=== PATIENT | female | born 1965 | race Caucasian/White ===

== ENCOUNTER → 2017-03-12 | Outpatient (CLI) | payer BC, OTHER ==
[~2017-03-12] MED LIST: CETI10TA17 PO; CYCL5TAB PO; HYDR-3583 PO; IBUP1TAB90 PO
--- NOTE | 2017-03-12 21:31 | Diagnostic Imaging Report ---
Bilateral diagnostic mammogram with tomography. The current study was also evaluated with a Computer Aided Detection (CAD) system. INDICATION: Breast pain, lump. COMPARISON: December 07, 2013. FINDINGS: The breasts are composed of extremely dense parenchyma which may decrease mammographic sensitivity. There are bilateral circumscribed masses suggested, although the borders of these masses are partially obscured by the adjacent dense parenchyma. No suspicious cluster of calcifications. IMPRESSION: Extremely dense breast parenchyma with suggestion of bilateral breast masses favored to be cysts. Ultrasound evaluation pending. ACR BI-RADS Category 0: Incomplete. (Needs additional imaging evaluation). Result letter will be mailed to the patient. Note: At least 10% of breast cancer is not imaged by mammography. Dictated by: Dictated on workstation # [id number]
--- NOTE | 2017-03-12 21:55 | Diagnostic Imaging Report ---
EXAMINATION: Bilateral breast ultrasound. INDICATION: Bilateral breast pain and lump. FINDINGS: In the left breast, the palpable area is at 12:00 zone with a lesion seen 2 cm from the nipple. It is a predominantly cystic lesion in the left breast measuring 3.1 x 1.8 x 3.1 cm with thickened septations and internal debris. No definite solid nodule or solid component is seen. There are multiple other cysts scattered in the breast, the largest is at 11:00 zone, 6 cm from the nipple, measuring 3 cm. Multiple simple appearing cysts in the right breast are also seen, the largest are at the 12:00 zone measuring 3.6 cm and at 10:30 zone in the periphery of the breast measuring 3.1 cm. No solid mass is identified. IMPRESSION: Multiple bilateral breast cystic lesions, mostly simple in appearance. The palpable lesion, however, in the left breast at the 12:00 zone demonstrates thickened septations, likely a complicated cyst with no definite solid component. Six-month followup ultrasound for this lesion is recommended. ACR BI-RADS Category 3: Probably benign findings. Result letter will be mailed to the patient. Note: At least 10% of breast cancer is not imaged by mammography. Dictated on workstation # [id number]
== END ==
LOC: RAD 07:13
PROVIDERS: ATTEND Nurse Practitioner Family
DX: N63 Unspecified lump in breast (principal)
CPT/HCPCS: 77066

== ENCOUNTER 2017-05-11 06:58 | Day surgery (SDC) | payer OTHER ==
[~2017-05-11] VITALS: Ht 172.7 cm; Wt 65.8 kg
[~2017-05-11 06:58] MED LIST changes: +MULT1CAP27 PO
--- OUTSIDE RECORDS SUMMARY | 2017-05-11 07:05 | XMS REPORT | Continuity of Care Document ---
Author Author [facility] Organization [facility] Address Unknown Phone Unavailable Allergies Active Description Code Type Severity Reaction Onset Reported/Identified Relationship to Patient Clinical Status Yes No Known Drug Allergies [id number] Drug Allergy Unknown N/ A 10/11/2010 Medications Problems Date Dx Coded Attending Type Code Diagnosis Diagnosed By 04/22/2012 Ot 552.1 UMBILICAL HERNIA W OBSTR 03/11/2017 Ot 553.1 UMBILICAL HERNIA 03/11/2017 Ot V72.63 PRE-PROCEDURAL LABORATORY EXAMINATION 03/11/2017 Ot V74.8 SCREEN-BACTERIAL DIS NEC 03/11/2017 MIGUEL MENENDEZ FURNITURE STAINER Ot 610.0 SOLITARY CYST OF BREAST 03/11/2017 MIGUEL MENENDEZ FURNITURE STAINER Ot 611.72 LUMP OR MASS IN BREAST 03/11/2017 MIGUEL MENENDEZ FURNITURE STAINER Ot 610.0 SOLITARY CYST OF BREAST 03/11/2017 MIGUEL MENENDEZ FURNITURE STAINER Ot 611.72 LUMP OR MASS IN BREAST 03/12/2017 MIGUEL MENENDEZ FURNITURE STAINER Ot 610.0 SOLITARY CYST OF BREAST 03/12/2017 MIGUEL MENENDEZ FURNITURE STAINER Ot 611.72 LUMP OR MASS IN BREAST 03/18/2017 ANGELA MCKINNON APRN Ot N63 UNSPECIFIED LUMP IN BREAST 03/20/2017 ANGELA MCKINNON APRN Ot N63 UNSPECIFIED LUMP IN BREAST Procedures Results Encounters ACCT No. Visit Date/Time Discharge Status Pt. Type Provider Facility Loc./Unit Complaint [id number] 05/07/2017 05:32:00 2016 10:17:00 DIS Outpatient ENRIKE VALLADARES MD [facility] PREOP COLONOSCOPY [id number] 03/12/2017 07:13:00 2016 23:59:59 CLS Outpatient ANGELA MCKINNON APRN [facility] RAD BREAST LUMP,PAIN [id number] 02/26/2017 07:33:00 2016 23:59:59 CLS Preadmit ANGELA MCKINNON APRN [facility] RAD SCREENING [id number] 12/20/2013 09:42:00 2013 23:59:59 CLS Outpatient [id number] 12/07/2013 13:36:00 2013 23:59:59 CLS Outpatient MIGUEL MENENDEZ [facility] RAD RT BREAST MASS [id number] 05/11/2017 07:30:00 PEN Preadmit ENRIKE VALLADARES MD [facility] ENDO SCREENING [id number] 04/22/2012 05:30:00 Document Registration [id number] 04/19/2012 08:03:00 Document Registration
[2017-05-11] MEDS ORDERED: NS IV 500 ML 500 ML IV PRN (07:10)
[2017-05-11] MEDS ORDERED: NS IV 500 ML 500 ML ONE (07:12)
[2017-05-11 07:37] VITALS: BP 119/73
[2017-05-11] MEDS ORDERED: fentaNYL INJECTION 100 MCG/2 ML AMP ONE (08:07)
[2017-05-11] MEDS ORDERED: MIDAZOLAM 2 MG/2 ML (VERSED) VIAL ONE ×4 (08:07)
[2017-05-11] MEDS: MIDAZOLAM 2 MG/2 ML (VERSED) VIAL IVP PRN ×2 (08:20→08:23)
[2017-05-11] MEDS: fentaNYL INJECTION 100 MCG/2 ML AMP IVP PRN ×2 (08:21→08:25)
--- NOTE | 2017-05-11 08:27 | History & Physicial ---
History of Present Illness History of Present Illness Reason for visit/HPI Patient is seen today in no acute distress for a screening colonoscopy. Patient has a positive family history of colon cancer in her paternal grandmother ( diagnosed when she was 40). Patient has never had a colonoscopy before. The procedure was described in detail, along with potential complications. Patient reports she believes her bowel prep was adequate. Date of Admission Date Seen by Provider: May 11, 2017 Time Seen by Provider: 08:15 I consulted on this patient on 05/11/17 08:23 Attending Physician Richard Lowery MD Consult Allergies and Home Medications Allergies Coded Allergies: No Known Drug Allergies (Unverified , 10/11/10) Home Medications Cetirizine HCl 10 Mg Tablet, 10 MG PO DAILY, (Reported) Multivitamin 1 Each Capsule, 1 EACH PO DAILY, (Reported) Past Whifpxv-Mmqbyg-Tgiwwy Hx Patient Social History Marrital Status: Employed/Student: employed Alcohol Use: Regular Use Number of Drinks Today: AA Alcohol Beverage of Choice: Beer Recreational Drug Use: No Smoking Status: Former Smoker Type Used: Electronic/Vapor Recent Foreign Travel: No Contact w/other who traveled: No Recent Hopitalizations: No Recent Infectious Disease Expo: No Immunizations Up To Date Tetanus Booster (TDap): Unknown Seasonal Allergies Seasonal Allergies: Yes Respiratory Currently Using CPAP: No Currently Using BIPAP: No Reproductive System Hx Reproductive Disorders: No Sexually Transmitted Disease: No HIV/AIDS: No Female Reproductive Disorders: Denies HEENT Loss of Vision: Denies Hearing Impairment: Denies Constitutional: no symptoms reported EENTM: no symptoms reported Respiratory: no symptoms reported Cardiovascular: no symptoms reported Gastrointestinal: diarrhea Genitourinary: no symptoms reported Musculoskeletal: no symptoms reported Skin: no symptoms reported Psychiatric/Neurological: No Symptoms Reported Physical Exam Vital Signs Vital Sign - Last 12Hours 05/11/17 07:37 Temp 97.8 Pulse 62 Resp 18 B/P (MAP) 119/73 Pulse Ox 96 O2 Delivery Room Air Capillary Refill : General Appearance: No Apparent Distress, WD/WN HEENT: PERRL/EOMI Neck: Full Range of Motion Respiratory: Chest Non Tender, Lungs Clear, Normal Breath Sounds, No Accessory Muscle Use Cardiovascular: Regular Rate, Rhythm, No Edema, No Gallop, No JVD Gastrointestinal: Normal Bowel Sounds, No Organomegaly, No Pulsatile Mass, Non Tender Neurologic/Psychiatric: Alert, Oriented x3 Skin: Normal Color, Warm/Dry Assessment/Plan Assessment and Plan Screening colonoscopy today. Positive family history of CRC. Procedure described in detail. Patient in agreement to proceed. Problems: SUSAN DEAL MED STUDENT May 11, 2017 08:27
--- NOTE | 2017-05-11 08:43 | Conscious Sedation/ASA ---
Conscious Sedation Pre-Proced Time Reviewed: 08:11 ASA Class: 2 Airway Mallampati Classification: (apache appropriate class) I. II. III, IV Lungs Heart ASA score ASA 1: a normal healthy patient ASA 2: a patient with a mild systemic disease (mid diabetes, controlled hypertension, obesity ASA 3: a patient with a severe systemic disease that limits activity (angina , COPD, prior Myocardial infarction) ASA 4: a patient with an incapacitating disease that is a constant threat to life (CHF, renal failure) ASA 5: a moribund patient not expected to survive 24 hrs. (ruptured aneurysm) ASA 6: a declared brain patient whose organs are being harvested. For emergent operations, add the letter E after the classification Grade 1 Sedation Plan: Discussed options with patient/fam Note The patient is an appropriate candidate to undergo the planned procedure, sedation, and anesthesia. The patient immediately re-assessed prior to indication. ENRIKE VALLADARES MD May 11, 2017 8:43 am
--- NOTE | 2017-05-11 08:46 | Endo Procedure Record ---
Endo Procedure Report Date of Procedure May 11, 2017 Surgeon (s) ENRIKE VALLADARES MD Post Procedure/Op Diagnosis normal colonoscopy Procedure Performed colonoscopy to cecum Description of Procedure Anesthesia Type: Conscious Sedation Specimen(s) collected/removed none Description of the Procedure Indication for procedure: This lady came in for screening colonoscopy. She reported a positive family history of colon cancer in one of her grandparents. Informed consent was obtained after reviewing the procedure in detail. Description of the procedure: She was placed in left lateral decub disposition 100 vital signs were monitored. Conscious sedation was achieved using Versed and fentanyl. Digital rectal examination was unremarkable. The colonoscope was then introduced in the rectum and advanced all the way up to the cecum. The quality of bowel preparation was excellent. The scope was then withdrawn slowly and the mucosa examined in a systematic fashion. There was no abnormality. She tolerated the procedure well and was taken back to the nursing area in a stable condition. Impression: Normal screening colonoscopy. Positive family history. Recommend repeating in 5 years. Copies To: STAS RECIO MD Copies To: VAMSHI BRANTLEY MD, XAVIER M MD May 11, 2017 8:46 am
--- NOTE | 2017-05-11 08:47 | Discharge Inst-Simple/Standard ---
Discharge Inst-Standard Discharge Medications New, Converted or Re-Newed RX: Other Patient Instructions/Follow Up Plan of Care/Instructions/FU: repeat colonoscopy in 5 years Activity as Tolerated: Yes Discharge Diet: No Restrictions ENRIKE VALLADARES MD May 11, 2017 8:47 am
[2017-05-11 09:00] VITALS: BP 106/58
[2017-05-11 09:30] VITALS: BP 109/74
[2017-05-11 09:40] VITALS: BP 109/74
== END 2017-05-11 09:40 | disposition home or self-care (01) ==
LOC: ENDO 06:58
PROVIDERS: ATTEND Surgery
DX: Z12.11 Encounter for screening for malignant neoplasm of colon (principal); Z80.0 Family history of malignant neoplasm of digestive organs
CPT/HCPCS: 84703

== ENCOUNTER → 2017-09-21 | Outpatient (CLI) | payer OTHER ==
--- NOTE | 2017-09-21 19:55 | Diagnostic Imaging Report ---
INDICATION: Six-month follow-up of left breast cystic mass. Correlation is made with prior study from 03/12/2017. FINDINGS: Sonographic interrogation of the septated complex cystic mass at the 12 o'clock location of the left breast was performed. This appears to be 12 o'clock retroareolar. This cyst measures approximately 3.9 x 2.0 x 1.6 cm compared with 3.1 x 1.8 x 3.1 cm on prior. This continues to show some internal septations, but there has been a decrease in the amount of internal debris. No nodularity is present. There is good posterior acoustic enhancement. IMPRESSION: Septated cystic mass retroareolar 12 o'clock left breast. This has slightly increased in size in long axis but has decreased in the other two planes when compared with examination six months earlier. Continued follow-up is recommended with additional repeat left breast ultrasound in six months to confirm stability. ACR BI-RADS Category 3: Probably benign findings. Dictated by: Dictated on workstation # [id number]
== END ==
LOC: RAD 08:52
PROVIDERS: ATTEND Nurse Practitioner Family
DX: N60.02 Solitary cyst of left breast (principal)
CPT/HCPCS: 76642

== ENCOUNTER → 2018-04-29 | Outpatient (CLI) | payer OTHER ==
--- NOTE | 2018-04-29 19:17 | Diagnostic Imaging Report ---
INDICATION: Six-month followup of left breast mass. COMPARISON: Correlation is made with prior mammograms from 03/12/2017 and 12/07/2013. TECHNIQUE: 2D and 3D bilateral diagnostic mammography was performed with computer-aided detection (CAD) system. FINDINGS: Both breasts are heterogeneously dense, limiting the sensitivity of mammography. There are circumscribed rounded masses in both breasts consistent with cysts; however, most appear to be decreased in size when compared with prior mammogram from one year earlier. No new mass is seen. No malignant appearing microcalcifications are identified. The axillae are unremarkable. IMPRESSION: No mammographic features suspicious for malignancy are identified. Sonographic interrogation of the previously noted complicated cyst in the 12 o'clock location of the left breast is recommended and will be performed this morning. ACR BI-RADS Category 0: Incomplete. (Needs additional imaging evaluation). Result letter will be mailed to the patient. Note: At least 10% of breast cancer is not imaged by mammography. Dictated by: Dictated on workstation # [id number]
--- NOTE | 2018-04-29 19:25 | Diagnostic Imaging Report ---
INDICATION: Six-month follow-up left breast cystic mass. Correlation is made with prior left breast ultrasound from 09/21/2017. Sonographic interrogation of the 12 o'clock retroareolar location of the left breast was performed. The septated cystic mass at this location is very similar in size measuring 4.0 x 2.1 x 1.6 cm compared with 3.9 x 2.0 x 1.6 cm. No internal vascularity is seen. No new abnormality is detected. IMPRESSION: Stable septated cystic mass at 12 o'clock retroareolar left breast when compared with examination from 09/21/2017. Additional six-month sonographic follow-up is recommended to confirm stability. ACR BI-RADS Category 3: Probably benign findings. Dictated by: Dictated on workstation # [id number]
== END ==
LOC: RAD 07:58
PROVIDERS: ATTEND Nurse Practitioner Family
DX: N60.02 Solitary cyst of left breast (principal)
CPT/HCPCS: 76642; 77066

== ENCOUNTER 2018-05-28 09:45 | Outpatient (CLI) | payer OTHER ==
[~2018-05-28] VITALS: Ht 172.7 cm; Wt 65.8 kg
== END 2018-05-28 10:14 | disposition home or self-care (01) ==
LOC: PREOP 09:45
PROVIDERS: ATTEND Surgery
DX: Z01.818 Encounter for other preprocedural examination (principal)

== ENCOUNTER 2018-05-31 09:46 | Day surgery (SDC) | payer OTHER ==
[~2018-05-31] VITALS: Ht 172.7 cm; Wt 65.8 kg
[2018-05-31] MEDS ORDERED: MIDAZOLAM 2 MG/2 ML (VERSED) VIAL IVP ONE (10:00)
[2018-05-31] MEDS ORDERED: NS IV 500 ML 500 ML IV PRN (10:00)
[2018-05-31] MEDS ORDERED: fentaNYL INJECTION 100 MCG/2 ML AMP IVP ONE (10:00)
[2018-05-31] MEDS ORDERED: HURRICAINE EXT TUBE (BENZOCAINE) XX ONE (10:15)
--- NOTE | 2018-05-31 10:16 | History & Physicial ---
History of Present Illness History of Present Illness Reason for visit/HPI to undergo an upper endoscopy with possible balloon dilatation to address dysphagia Date of Admission 05/31/18 Date Seen by a Provider: May 31, 2018 Time Seen by a Provider: 10:15 I consulted on this patient on 05/31/18 10:15 Attending Physician Enrike Lowery MD Admitting Physician Vania Parra MD Consult Allergies and Home Medications Allergies Coded Allergies: No Known Drug Allergies (Unverified , 05/28/18) Home Medications Cetirizine HCl 10 Mg Tablet, 10 MG PO DAILY, (Reported) Patient Home Medication List Home Medication List Reviewed: Yes Past Yddjfit-Gipaxi-Oqwrwn Hx Patient Social History Marrital Status: Employed/Student: employed Alcohol Beverage of Choice: Beer Former Smoker, Quit: May 28, 1986 Type Used: Electronic/Vapor Recent Foreign Travel: No Contact w/other who traveled: No Recent Hopitalizations: No Immunizations Up To Date Tetanus Booster (TDap): Unknown Seasonal Allergies Seasonal Allergies: Yes Respiratory Currently Using CPAP: No Currently Using BIPAP: No Reproductive System Hx Reproductive Disorders: No Sexually Transmitted Disease: No HIV/AIDS: No Female Reproductive Disorders: Denies HEENT Loss of Vision: Bilateral Hearing Impairment: Denies Blood Transfusions Adverse Reaction to a Blood Tr: No (N/A) Review of Systems Constitutional: no symptoms reported EENTM: no symptoms reported Respiratory: no symptoms reported Cardiovascular: no symptoms reported Gastrointestinal: see HPI Genitourinary: no symptoms reported Skin: no symptoms reported Psychiatric/Neurological: No Symptoms Reported Physical Exam Vital Signs Capillary Refill : Height, Weight, BMI Height: 5'8.00" Weight: 145lbs. 0.0oz. [id number]; 22.1 BMI Method: General Appearance: No Apparent Distress Neck: Normal Inspection Respiratory: Lungs Clear Cardiovascular: Regular Rate, Rhythm Gastrointestinal: Non Tender, Soft Neurologic/Psychiatric: Oriented x3 Skin: Warm/Dry Assessment/Plan Assessment and Plan lady with dysphagia. 4 upper endoscopy with possible balloon dilatation. Admission Diagnosis Admission Status: Other (Outpt Proc) ENRIKE LOWERY MD May 31, 2018 10:16
--- NOTE | 2018-05-31 10:17 | Conscious Sedation/ASA ---
Conscious Sedation Pre-Proced Time 10:17 ASA Score 2 For ASA 3 and 4: Consider anesthesia and medical clearance. Also, for patients with a history of failed moderate sedation consider anesthesia. Airway Lungs Heart ASA score ASA 1: a normal healthy patient ASA 2: a patient with a mild systemic disease (mid diabetes, controlled hypertension, obesity ASA 3: a patient with a severe systemic disease that limits activity (angina , COPD, prior Myocardial infarction) ASA 4: a patient with an incapacitating disease that is a constant threat to life (CHF, renal failure) ASA 5: a moribund patient not expected to survive 24 hrs. (ruptured aneurysm) ASA 6: a declared brain patient whose organs are being harvested. For emergent operations, add the letter E after the classification Mallampati Classification Grade 1 Sedation Plan Discussed options with patient/fam The patient is an appropriate candidate to undergo the planned procedure, sedation, and anesthesia. The patient immediately re-assessed prior to indication. ENRIKE VALLADARES MD May 31, 2018 10:17
--- OUTSIDE RECORDS SUMMARY | 2018-05-31 10:41 | XMS REPORT | CCD ---
Author Author [facility] Address [address] [place] [address] Phone Care Team Providers Care [facility] [employer] [employer] Name Role Phone PP Unavailable CCM Unavailable Summary Purpose Interface Exchange Insurance Providers Payer name Policy type / Coverage type Covered constitution party ID Effective Begin Date Effective End Date [employer] Commercial [employer] [id number] 2016 Unknown Family history Mother Diagnosis Age At Onset No Family Disease Entered N/A Brother Diagnosis Age At Onset No Family Disease Entered N/A Daughter Diagnosis Age At Onset No Family Disease Entered N/A Father Diagnosis Age At Onset No Family Disease Entered N/A Social History Social History Element Codes Description Effective Dates Marital status Unknown 04/14/2012 Employment Unknown Currently employed owns her own business 04/14/[address]: 874125037 Never smoker 04/14/2012 Alcohol history Unknown occasionally drinks alcohol 12 pack weekly 04/14/2012 Has the patient ever used illegal drugs? Unknown Has never used illegal drugs 04/14/2012 Allergies, Adverse Reactions, Alerts Substance Reaction Codes Entered Date Inactivated Date Status * NO KNOWN FOOD ALLERGIES Unknown 04/14/2012 No Inactive Date Active * NO KNOWN DRUG ALLERGIES Unknown 04/14/2012 No Inactive Date Active Past Medical History Illness Codes Condition Status Onset Date Resolved Date Dysphagia, pharyngoesophageal phase ICD-9: 787.24 ICD-10: R13.14 Active 05/19/2018 Unknown Unspecified lump in unspecified breast ICD-9: 611.72 ICD-10: N63.0 Active 04/30/2018 Unknown Sciatica Unknown Active 03/12/2017 Unknown Mastodynia ICD-9: 611.71 ICD-10: N64.4 Active 03/12/2017 Unknown Sciatica, right side ICD-9: 724.3 ICD-10: M54.31 Active 03/12/2017 Unknown Solitary cyst of left breast ICD-9: 610.0 ICD-10: N60.02 Active 03/12/2017 Unknown Cervicalgia ICD-9: 723.1 ICD-10: M54.2 Active 02/12/2016 Unknown Other fatigue ICD-9: 780.79 ICD-10: R53.83 Active 02/12/2016 Unknown Other muscle spasm ICD -9: 728.85 ICD-10: M62.838 Active 02/12/2016 Unknown Breast mass, right ICD -9: 611.72 Active 11/29/2013 Unknown Osteoarthritis Unknown Active 04/14/2012 Unknown Cervicalgia ICD-9: 723.1 Active 04/14/2012 Unknown Spasm of muscle ICD-9 : 728.85 Active 04/14/2012 Unknown Problems Condition Codes Effective Dates Condition Status Dysphagia, pharyngoesophageal phase ICD-9: 787.24 ICD-10: R13.14 05/19/2018 Active Unspecified lump in unspecified breast ICD-9: 611.72 ICD-10: N63.0 04/30/2018 Active Sciatica Unknown 03/12/2017 Active Mastodynia ICD-9: 611.71 ICD-10: N64.4 03/12/2017 Active Sciatica, right side ICD-9: 724.3 ICD-10: M54.31 03/12/2017 Active Solitary cyst of left breast ICD-9: 610.0 ICD-10: N60.02 03/12/2017 Active Cervicalgia ICD-9: 723.1 ICD-10: M54.2 02/12/2016 Active Other fatigue ICD-9: 780.79 ICD-10: R53.83 02/12/2016 Active Other muscle spasm ICD -9: 728.85 ICD-10: M62.838 02/12/2016 Active Breast mass, right ICD -9: 611.72 11/29/2013 Active Osteoarthritis Unknown 04/14/2012 Active Cervicalgia ICD-9: 723.1 04/14/2012 Active Spasm of muscle ICD-9 : 728.85 04/14/2012 Active Medications Medication Codes Instructions Start Date Stop Date Status Fill Instructions Keflex 500 mg capsule RxNorm: 607221 1 Capsule(s) PO TID 201603/18/2017 Inactive cyclobenzaprine 5 mg tablet RxNorm: 914941 1 Tablet(s) PO TID 02/13/2016 02/22/2016 Inactive Zyrtec 10 mg capsule RxNorm: 1547026 1 Capsule(s) PO daily No Start Date Active ibuprofen-famotidine 800 mg-26.6 mg tablet RxNorm: 9189957 Tablet(s) PO No Start Date Active Flexeril 10 mg tablet RxNorm: 027889 1/2-1 Tablet(s) PO TID PRN No Start Date 03/11/2017 Inactive Medication Administered No Medication Administered data Immunizations No Immunization data Assessments Condition Codes Effective Dates Dysphagia, pharyngoesophageal phase ICD-10: R13.14 ICD-9: 787.24 05/19/2018 Unspecified lump in unspecified breast ICD-10: N63.0 ICD-9: 611.72 04/30/2018 Solitary cyst of left breast ICD-10: N60.02 ICD-9: 610.0 03/12/2017 Sciatica, right side ICD-10: M54.31 ICD-9: 724.3 03/12/2017 Mastodynia ICD-10: N64.4 ICD-9: 611.71 03/12/2017 Cervicalgia ICD-10: M54.2 ICD-9: 723.1 02/13/2016 Other fatigue ICD-10: R53.83 ICD-9: 780.79 02/13/2016 Other muscle spasm ICD-10: M62.838 ICD-9: 728.85 02/13/2016 Breast mass, right ICD-9: 611.72 2013 Spasm of muscle ICD-9: 728.85 04/14/2012 Cervicalgia ICD-9: 723.1 04/14/2012 Reason For Visit Reason For Visit Effective Dates Notes dysphagia 05/19/2018 breast complaint 03/12/2017 fatigue 02/13/2016 breast complaint 11/29/2013 neck pain 04/14/2012 Results Observation Observation Code Item Item Code Result Date Ehrlichia Chaffeensis Antibody Igg 080923 EHRLICHIA CHAFFEENSIS IGG <1:64 02/22/2016 [place] Spotted Fever Igg/Igm 723750 PRAMOD MT SPOTTED FEVER IGM EIA . 02/22/2016 [place] Spotted Fever Igg/Igm 787871 RMSF, IGM 0.28 index 02/22/2016 [place] Spotted Fever Igg/Igm 597579 PRAMOD MT SPOTTED FEVER IGG EIA FLEX . 02/22/2016 [place] Spotted Fever Igg/Igm 081228 RMSF, IGG SCREEN-FLEX Equivocal 02/22/2016 Ehrlichia Chaffeensis Antibody Igm 386879 EHRLICHIA CHAFFEENSIS IGM < 1:16 02/22/2016 Pramod Mtn Spot'D Fev Igg 265270 RMSF, IGG -TITER IFA <1:64 Lymes Disease Total Antibodies With Western Blot Reflex [id number] B. BURGDORFERI, IGG/IGM 0.36 LI 02/20/2016 Lymes Disease Total Antibodies With Western Blot Reflex [id number] 02/20/2016 Comp Metabolic Xyv361 NA 135 mEq/L 02/18/2016 Comp Metabolic Cpj799 K 5.1 mEq/L 02/18/2016 Comp Metabolic Lkr352 CL 104 mEq/L 02/18/2016 Comp Metabolic Jqm185 CO2 27.0 mEq/L 02/18/2016 Comp Metabolic Smk272 ANION GAP 9 02/18/2016 Comp Metabolic One831 GLUCOSE 84 mg/dL 02/18/2016 Comp Metabolic Ord018 Creat 0.7 mg/dL 02/18/2016 Comp Metabolic Cwl732 eGFR 94 ml/min/1.73m2 02/18/2016 Comp Metabolic Cax815 BUN 17 mg/dL 02/18/2016 Comp Metabolic Rcz063 B/C Ratio 24.3 Ratio 02/18/2016 Comp Metabolic Zzx222 CALCIUM 9.9 mg/dL 02/18/2016 Comp Metabolic Fyl038 ALK PHOS 44 U/L 02/18/2016 Comp Metabolic Wel905 AST(SGOT) 15 U/L 02/18/2016 Comp Metabolic Knm679 ALT(SGPT) 15 U/L 02/18/2016 Comp Metabolic Cup491 BILI T 1.2 mg/dL 02/18/2016 Comp Metabolic Wkb352 ALBUMIN 4.1 g/dL 02/18/2016 Comp Metabolic Zpa309 TPRO 6.5 g/dL 02/18/2016 Comp Metabolic Zde883 GLOB 2.4 g/dL 02/18/2016 Comp Metabolic Kxv331 A/G Ratio 1.7 Ratio 02/18/2016 Comp Metabolic Edy938 Osmo 271 mOsmo 02/18/2016 Cbc With Differential Ord2 WBC 5.38 K/ul 02/18/2016 Cbc With Differential Ord2 RBC 4.52 M/ul 02/18/2016 Cbc With Differential Ord2 HGB 14.1 g/dl 02/18/2016 Cbc With Differential Ord2 HCT 41.9 % 02/18/2016 Cbc With Differential Ord2 Neut% 48.5 % 02/18/2016 Cbc With Differential Ord2 Lymph% 32.9 % 02/18/2016 Cbc With Differential Ord2 MCV 92.7 fl 02/18/2016 Cbc With Differential Ord2 [place]% 10.8 % 02/18/2016 Cbc With Differential Ord2 MCH 31.2 pg 02/18/2016 Cbc With Differential Ord2 MCHC 33.7 pg 02/18/2016 Cbc With Differential Ord2 Eos% 6.7 % 02/18/2016 Cbc With Differential Ord2 PLT 224 K/ul 02/18/2016 Cbc With Differential Ord2 Baso% 1.1 % 02/18/2016 Cbc With Differential Ord2 Neut ABS# 2.61 K/ul 02/18/2016 Cbc With Differential Ord2 RDW 12.7 % 02/18/2016 Cbc With Differential Ord2 Lymph ABS# 1.77 K/ul 02/18/2016 Cbc With Differential Ord2 [place] ABS# 0.6 K/ul 02/18/2016 Cbc With Differential Ord2 Eos ABS# 0.4 K/ul 02/18/2016 Cbc With Differential Ord2 Baso ABS# 0.1 K/ul 02/18/2016 Tsh Ord6 hTSH II 2.04 uIU/mL 02/18/2016 Lipid Ord30 CHOL 210 mg/dL 02/18/2016 Lipid Ord30 HDL 54.0 mg/dl 02/18/2016 Lipid Ord30 TRIG 106 mg/dL 02/18/2016 Lipid Ord30 LDL 135 mg/dL 02/18/2016 Lipid Ord30 C/HDL 3.9 Ratio 02/18/2016 Review of Systems System Result Effective Dates Constitutional No recent illness 2017 Constitutional No chills 05/19/2018 Constitutional No diaphoresis 05/19/2018 Constitutional No fever 05/19/2018 Eyes No eye erythema 05/19/2018 Ears/Nose/Throat/Neck No nasal discharge 05/19/2018 Cardiovascular No chest pain/pressure Cardiovascular No dyspnea 05/19/2018 Respiratory No cough 05/19/2018 Respiratory No chest congestion 2017 Gastrointestinal No abdominal pain 2017 Gastrointestinal No constipation 2017 Gastrointestinal No diarrhea 05/19/2018 Gastrointestinal dysphagia 05/19/2018 Gastrointestinal No vomiting 05/19/2018 Gastrointestinal No nausea 05/19/2018 Neurologic No alteration of consciousness 05/19/2018 Neurologic No mental status change 2017 Constitutional No recent illness 2016 Constitutional No anorexia 03/12/2017 Constitutional No night sweats 2016 Constitutional No chills 03/12/2017 Constitutional No diaphoresis 03/12/2017 Constitutional No fatigue 03/12/2017 Constitutional No fever 03/12/2017 Constitutional No insomnia 03/12/2017 Constitutional No malaise 03/12/2017 Constitutional No weight loss 03/12/2017 Constitutional No weight gain 03/12/2017 Genitourinary/Nephrology breast complaint 03/12/2017 Constitutional No recent illness 2015 Constitutional No chills 02/13/2016 Constitutional No diaphoresis 02/13/2016 Constitutional fatigue 02/13/2016 Constitutional No fever 02/13/2016 Cardiovascular No chest pain/pressure Respiratory No cough 02/13/2016 Dermatologic No rash 02/13/2016 Neurologic No alteration of consciousness 02/13/2016 Constitutional insomnia 02/13/2016 Eyes No eye erythema 02/13/2016 Ears/Nose/Throat/Neck No nasal allergies 02/13/2016 Ears/Nose/Throat/Neck No nasal discharge 02/13/2016 Cardiovascular No dyspnea 02/13/2016 Respiratory No chest congestion 2015 Respiratory No dyspnea 02/13/2016 Respiratory snoring 02/13/2016 Respiratory daytime hypersomnolence 02/12 Gastrointestinal No abdominal pain 2015 Gastrointestinal No vomiting 02/13/2016 Gastrointestinal No nausea 02/13/2016 Genitourinary/Nephrology No flank pain Musculoskeletal neck pain 02/13/2016 Neurologic No mental status change 2015 Constitutional No recent illness 2013 Constitutional No anorexia 11/29/2013 Constitutional No night sweats 2013 Constitutional No chills 11/29/2013 Constitutional No diaphoresis 11/29/2013 Constitutional No fever 11/29/2013 Constitutional No fatigue 11/29/2013 Constitutional No insomnia 11/29/2013 Constitutional No malaise 11/29/2013 Constitutional No weight loss 11/29/2013 Constitutional No weight gain 11/29/2013 Constitutional No recent illness 2011 Constitutional No anorexia 04/14/2012 Constitutional No night sweats 2011 Constitutional No chills 04/14/2012 Constitutional No diaphoresis 04/14/2012 Constitutional No fatigue 04/14/2012 Constitutional No fever 04/14/2012 Constitutional No insomnia 04/14/2012 Constitutional No malaise 04/14/2012 Neurologic No alteration of consciousness 04/14/2012 Neurologic No pain, limb 04/14/2012 Neurologic No paresthesia 04/14/2012 Dermatologic No rash 04/14/2012 Dermatologic No acne rosacea 04/14/2012 Cardiovascular No chest pain/pressure Respiratory No cough 04/14/2012 Physical Exam Exam Name System Name Item Name Status Result Effective Dates Notes Full Exam - General 1994 Constitutional general appearance Overall: well developed 05/19/2018 None Full Exam - General 1994 Constitutional general appearance Overall: in no acute distress 05/19/2018 None Full Exam - General 1994 Constitutional general appearance Overall: well nourished 05/19/2018 None Full Exam - General 1994 Eyes conjunctiva /eyelids Overall: eyelids normal 05/19/2018 None Full Exam - General 1994 Eyes conjunctiva /eyelids Overall: cornea clear 05/19/2018 None Full Exam - General 1994 Eyes conjunctiva /eyelids Overall: conjunctiva clear 05/19/2018 None Full Exam - General 1994 Ears/Nose/Throat lips/teeth/gingiva Overall: benign lips 05/19/2018 None Full Exam - General 1994 Ears/Nose/Throat oral cavity/pharynx/larynx Overall: oral mucosa clear 05/19/2018 None Full Exam - General 1994 Respiratory respiratory effort/rhythm Overall: normal rate 05/19/2018 None Full Exam - General 1994 Respiratory respiratory effort/rhythm Overall: no retractions 05/19/2018 None Full Exam - General 1994 Respiratory auscultation Overall: breath sounds clear bilaterally 05/19/2018 None Full Exam - General 1994 Cardiovascular auscultation of heart Overall: normal heart sounds 05/19/2018 None Full Exam - General 1994 Cardiovascular auscultation of heart Overall: regular rate 05/19/2018 None Full Exam - General 1994 Abdomen abdominal exam Overall: normal bowel sounds 05/19/2018 None Full Exam - General 1994 Musculoskeletal head and neck Overall: head atraumatic 05/19/2018 None Full Exam - General 1994 Neurologic cranial nerves Overall: crainial nerves 2 - 12 grossly intact 05/19/2018 None Full Exam - General 1994 Psychiatric orientation/consciousness Overall: oriented to person, place and time 05/19/2018 None Full Exam - General 1994 Psychiatric mood and affect Overall: normal mood and affect 05/19/2018 None Full Exam - Genitourinary/Female Constitutional general appearance Overall: well developed 03/12/2017 None Full Exam - Genitourinary/Female Constitutional general appearance Overall: in no acute distress 03/12/2017 None Full Exam - Genitourinary/Female Constitutional general appearance Overall: well nourished 03/12/2017 None Full Exam - Genitourinary/Female Psychiatric orientation/consciousness Overall: oriented to person, place and time 03/12/2017 None Full Exam - Genitourinary/Female Chest/Breast breast inspection and palpation Left nipple: no discharge 03/12/2017 None Full Exam - Genitourinary/Female Chest/Breast breast inspection and palpation Left upper outer quadrant: tender 03/12/2017 3x3 cm cyst tender at the 12 o'clock zone near the nipple Full Exam - Genitourinary/Female Chest/Breast breast inspection and palpation Overall: normal chest shape 03/12/2017 fibrocystic breasts bilaterally Full Exam - General 1994 Constitutional general appearance Development: well developed 02/13/2016 None Full Exam - General 1994 Constitutional general appearance Development: appears stated age 0802/13/2016 None Full Exam - General 1994 Respiratory auscultation Overall: breath sounds clear bilaterally 02/13/2016 None Full Exam - General 1994 Cardiovascular auscultation of heart Overall: regular rate 02/13/2016 None Full Exam - General 1994 Cardiovascular auscultation of heart Overall: normal heart sounds 02/13/2016 None Full Exam - General 1994 Musculoskeletal head and neck Overall: head atraumatic 02/13/2016 None Full Exam - General 1994 Musculoskeletal head and neck Cervical Spine: a normal exam 02/13/2016 tender on right over trapezius and paraspinal muscles Full Exam - General 1994 Psychiatric orientation/consciousness Overall: oriented to person, place and time 02/13/2016 None Full Exam - General 1994 Respiratory respiratory effort/rhythm Overall: no retractions 02/13/2016 None Full Exam - General 1994 Respiratory respiratory effort/rhythm Overall: normal rate 02/13/2016 None Full Exam - General 1994 Eyes conjunctiva /eyelids Overall: conjunctiva clear 02/13/2016 None Full Exam - General 1994 Eyes conjunctiva /eyelids Overall: cornea clear 02/13/2016 None Full Exam - General 1994 Eyes conjunctiva /eyelids Overall: eyelids normal 02/13/2016 None Full Exam - General 1994 Eyes pupils and irises Overall: pupils equal, round, reactive to light and accomodation 02/13/2016 None Full Exam - General 1994 Ears/Nose/Throat otoscopic exam Overall: external auditory canals clear 02/13/2016 None Full Exam - General 1994 Ears/Nose/Throat otoscopic exam Overall: tympanic membranes clear 02/13/2016 None Full Exam - General 1994 Ears/Nose/Throat lips/teeth/gingiva Overall: benign lips 02/13/2016 None Full Exam - General 1994 Ears/Nose/Throat lips/teeth/gingiva Overall: normal dentition 02/13/2016 None Full Exam - General 1994 Ears/Nose/Throat oral cavity/pharynx/larynx Overall: oral mucosa clear 02/13/2016 None Full Exam - General 1994 Ears/Nose/Throat oral cavity/pharynx/larynx Overall: oropharyngeal mucosa clear 02/13/2016 None Full Exam - General 1994 Ears/Nose/Throat oral cavity/pharynx/larynx Overall: no masses 02/13/2016 None Full Exam - General 1994 Cardiovascular extremities Overall: no clubbing 02/13/2016 None Full Exam - General 1994 Abdomen abdominal exam Overall: no tenderness 02/13/2016 None Full Exam - General 1994 Abdomen abdominal exam Overall: normal bowel sounds 02/13/2016 None Full Exam - General 1994 Lymphatic neck nodes Overall: posterior cervical chain benign 02/13/2016 None Full Exam - General 1994 Lymphatic neck nodes Overall: anterior cervical chain benign 02/13/2016 None Full Exam - General 1994 Musculoskeletal gait and station Overall: normal gait 02/13/2016 None Full Exam - General 1994 Musculoskeletal gait and station Overall: normal station 02/13/2016 None Full Exam - General 1994 Integument inspection of skin Overall: no rash, lesions 02/13/2016 None Full Exam - General 1994 Neurologic cranial nerves Overall: crainial nerves 2 - 12 grossly intact 02/13/2016 None Full Exam - General 1994 Neurologic gait Overall: no ataxia, no unsteadiness 02/13/2016 None Full Exam - General 1994 Psychiatric mood and affect Overall: normal mood and affect 02/13/2016 None Full Exam - General 1994 Psychiatric appearance Overall: well-groomed, good eye contact 02/13/2016 None Full Exam - General 1994 Psychiatric speech Overall: normal quality, no aphasia 02/13/2016 None Full Exam - General 1994 Psychiatric speech Overall: normal quality, quantity, rate 02/13/2016 None Full Exam - General 1994 Constitutional general appearance Overall: well developed 11/29/2013 None Full Exam - General 1994 Constitutional general appearance Overall: in no acute distress 11/29/2013 None Full Exam - General 1994 Constitutional general appearance Overall: well nourished 11/29/2013 None Full Exam - General 1994 Psychiatric orientation/consciousness Overall: oriented to person, place and time 11/29/2013 None Full Exam - General 1994 Chest/Breast breast and axillae palpation Upper inner quadrant: mass present 11/29/2013 None Full Exam - General 1994 Chest/Breast breast and axillae palpation Upper inner quadrant: tender 11/29/2013 None Full Exam - General 1994 Chest/Breast breast and axillae palpation Upper inner quadrant: Right size (cm): 9cmx4.5cm 11/29/2013 9cmx4.5cm at the 2 o'clock position right breast Full Exam - General 1994 Chest/Breast breast and axillae palpation Upper inner quadrant: firm 11/29/2013 None Full Exam - General 1994 Chest/Breast breast and axillae palpation Upper inner quadrant: non-erythematous 11/29/2013 None Full Exam - General 1994 Constitutional general appearance Development: well developed 04/14/2012 None Full Exam - General 1994 Constitutional general appearance Development: appears stated age 1004/14/2012 None Full Exam - General 1994 Psychiatric orientation/consciousness Overall: oriented to person, place and time 04/14/2012 None Full Exam - General 1994 Musculoskeletal head and neck Overall: head atraumatic 04/14/2012 None Full Exam - General 1994 Musculoskeletal head and neck Cervical Spine: a normal exam 04/14/2012 tender on right over trapezius and paraspinal muscles Full Exam - General 1994 Cardiovascular auscultation of heart Overall: regular rate 04/14/2012 None Full Exam - General 1994 Cardiovascular auscultation of heart Overall: normal heart sounds 04/14/2012 None Full Exam - General 1994 Cardiovascular auscultation of heart Overall: no murmurs 04/14/2012 None Full Exam - General 1994 Respiratory auscultation Overall: breath sounds clear bilaterally 04/14/2012 None Procedures No Procedures data Vital Signs Date Vital 05/19/2018 Blood Pressure 1: 118/70 Code : 8480-6 BMI: 22.5 Code : 45118-4 Heart Rate 1 : 64 bpm Height: 5'8" SpO2: 99% Weight: 148 lbs 03/12/2017 BMI: 22.6 Code: 68234-8 Heart Rate 1: 58 bpm Height: 5'8" SpO2: 98% Weight: 148 lbs 8 oz 02/13/2016 Blood Pressure 1: 120/68 Code : 8480-6 BMI: 21.7 Code : 66129-9 Heart Rate 1 : 47 bpm Height: 5'8" SpO2: 98% Weight: 143 lbs 11/29/2013 Blood Pressure 1: 110/60 Code : 8480-6 BMI: 22.5 Code : 07657-8 Heart Rate 1 : 64 bpm Height: 5'8" Weight: 148 lbs 04/14/2012 Blood Pressure 1: 114/70 Code : 8480-6 Heart Rate 1: 72 bpm Weight: 156 lbs Functional Status No Functional Status data History of Present Illness Symptom Name Status Result Effective Date Notes dysphagia Quality chronic 05/19/2018 None dysphagia Quality worsening 05/19/2018 None dysphagia Quality difficulty with hard solids 05/19/2018 None dysphagia Onset and Resolution gradual in onset 05/19/2018 None dysphagia Onset and Resolution ongoing 05/19/2018 None dysphagia Pertinent Findings Denies dyspnea 05/19/2018 None breast complaint Quality mass 03/12/2017 None breast complaint Quality worsening 03/12/2017 None breast complaint Triggers no known associated factors 03/12/2017 None breast complaint Pertinent Findings breast pain 03/12/2017 None breast complaint Pertinent Findings Denies fever 03/12/2017 None breast complaint Onset and Resolution sudden in onset 03/12/2017 None breast complaint Severity severe 03/12/2017 None breast complaint Onset of Symptom _ weeks ago 03/12/2017 None fatigue Limitation on Activities moderately limits activities 02/13/2016 None fatigue Onset of Symptom 4 months ago 02/13/2016 None fatigue Frequency of Episodes daily 02/13/2016 None breast complaint Location in the right upper inner quadrant 11/29/2013 None breast complaint Onset of Symptom 2 months ago 11/29/2013 None breast complaint Quality mass 11/29/2013 None breast complaint Quality worsening 11/29/2013 None breast complaint Pertinent Findings breast pain 11/29/2013 None breast complaint Pertinent Findings Denies fever 11/29/2013 None breast complaint Severity moderate 11/29/2013 None breast complaint Frequency of Episodes decreasing 11/29/2013 None breast complaint Triggers no known associated factors 11/29/2013 None neck pain Location in the paraspinous muscles 04/14/2012 None neck pain Quality acute 04/14/2012 None neck pain Onset and Resolution ongoing 04/14/2012 None neck pain Onset of Symptom 3 weeks ago 04/14/2012 None neck pain Limitation on Activities does not limit activities 04/14/2012 None neck pain Frequency of Episodes unchanged 04/14/2012 None neck pain Triggers activity 04/14/2012 None neck pain Exacerbating Factors activity 04/14/2012 None neck pain Initial treatment medication 04/14/2012 used ibuprofen without relief neck pain Mechanism of injury unknown 04/14/2012 None Advance Directives No Advance Directive data Encounters Encounter Performer Location Codes Date 02603 EST. PATIENT, LEVEL III Diagnosis: Dysphagia, pharyngoesophageal phase[ICD10: R13.14] Anni Parra MD, [facility] CPT-4: 51351 05/19/2018 ([id number]) 50413 EST. PATIENT, LEVEL III Diagnosis: Mastodynia[ICD10: N64.4] Diagnosis: Solitary cyst of left breast[ICD10: N60.02] Diagnosis: Sciatica, right side[ICD10: M54.31] Tiffanie Parra MD, [facility] CPT-4: 24070 03/12/2017 76072 EST. PATIENT, LEVEL III Diagnosis: Cervicalgia[ICD10: M54.2] Diagnosis: Other muscle spasm[ICD10: M62.838] Diagnosis: Other fatigue[ICD10: R53.83] [facility] CPT-4 : 40966 02/13/2016 ([id number]) 88177 EST. PATIENT, LEVEL III Diagnosis: Breast mass, right[ICD9: 611.72] Tiffanie Parra MD, [facility] CPT-4: 07749 11/29/2013 ([id number]) 29540 EST. PATIENT, LEVEL III Diagnosis: Cervicalgia[ICD9: 723.1] Diagnosis: Spasm of muscle[ICD9: 728.85] Tiffanie Parra MD, [facility] CPT-4: 75940 04/14/2012 Plan of Care Planned Activity Notes Codes Status Date Patient Education: Patient Medication Summary Completed 05/19/2018 Care Plan: Referral Order SNOMED-CT : [id number] Pending 05/19/2018 Patient Education: Patient Medication Summary Completed 04/30/2018 Appointment: Tiffanie Patel WPtel: [address] [place] [address] (15 min) Moderate 03/12/2017 Patient Education: Patient Medication Summary Completed 03/12/2017 Care Plan: SCREENINGMAMMOGRAPHYDIGITAL LOINC : 16566-4 Pending 02/15/2016 Patient Education: Patient Medication Summary Completed 02/13/2016 Patient Education: .Cervicalgia Neck Pain Completed 02/13/2016 Appointment: Tiffanie Patel WPtel: [address] [place] [address] Sick 11/29/2013 Patient Education: Patient Medication Summary Completed 11/29/2013 Appointment: Tiffanie Patel WPtel: [address] [place], [place] [address] Other 04/14/2012 Patient Education: Patient Medication Summary Completed 04/14/2012 Patient Education: .Cervicalgia Neck Pain Completed 04/14/2012 Referral: Martínez Lowery Referral Initiated Instructions No Instructions
--- OUTSIDE RECORDS SUMMARY | 2018-05-31 10:42 | XMS REPORT | CCD ---
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 Never smoker 04/14/2012 Alcohol history Unknown occasionally [...] Codes Condition Status Onset Date Resolved Date Unspecified lump in unspecified breast ICD-9: 611.72 [...] Problems Condition Codes Effective Dates Condition Status Unspecified lump in unspecified breast ICD-9: 611.72 [...] Fill Instructions Keflex 500 mg capsule RxNorm: 249319 1 Capsule(s) PO TID 201603/18/2017 Inactive cyclobenzaprine 5 mg tablet RxNorm: 805335 1 Tablet(s) PO TID 02/13/2016 02/22/2016 Inactive Zyrtec 10 mg capsule RxNorm: 3828114 1 Capsule(s) PO daily No Start Date Active ibuprofen-famotidine 800 mg-26.6 mg tablet RxNorm: 9383789 Tablet(s) PO No Start Date Active Flexeril 10 mg tablet RxNorm: 994921 2-1 Tablet(s) PO TID PRN No Start Date 03/11/2017 Inactive Medication Administered No Medication Administered data Immunizations No Immunization data Assessments Condition Codes Effective Dates Unspecified lump in unspecified breast ICD-10: N63.0 [...] Visit Reason For Visit Effective Dates Notes breast complaint 03/12/2017 fatigue 02/13/2016 breast complaint 11/29/2013 neck pain 04/14/2012 Results Observation Observation Code Item Item Code Result Date Pramod Mtn Spot'D Fev Igg 342684 RMSF, IGG -TITER IFA <1:64 Ehrlichia Chaffeensis Antibody Igm 989978 EHRLICHIA CHAFFEENSIS IGM < 1:16 02/22/2016 Ehrlichia Chaffeensis Antibody Igg 229391 EHRLICHIA CHAFFEENSIS IGG <1:64 02/22/2016 [place] Spotted Fever Igg/Igm 397865 PRAMOD MT SPOTTED FEVER IGM EIA . 02/22/2016 [place] Spotted Fever Igg/Igm 669992 RMSF, IGM 0.28 index 02/22/2016 [place] Spotted Fever Igg/Igm 817915 PRAMOD MT SPOTTED FEVER IGG EIA FLEX . 02/22/2016 [place] Spotted Fever Igg/Igm 639706 RMSF, IGG SCREEN-FLEX Equivocal 02/22/2016 Lymes Disease Total Antibodies With Western Blot Reflex 900499 B. BURGDORFERI, IGG/IGM 0.36 LI 02/20/2016 [place]ym[place] Disease Total Antibodies With Western Blot Reflex 560580 02/20/2016 Comp Metabolic Ghi908 NA 135 mEq/L 02/18/2016 Comp Metabolic Mbv347 K 5.1 mEq/L 02/18/2016 Comp Metabolic Hkd707 CL 104 mEq/L 02/18/2016 Comp Metabolic Gmq495 CO2 27.0 mEq/L 02/18/2016 Comp Metabolic Yfl250 ANION GAP 9 02/18/2016 Comp Metabolic Plx747 GLUCOSE 84 mg/dL 02/18/2016 Comp Metabolic Qem550 Creat 0.7 mg/dL 02/18/2016 Comp Metabolic Hpr857 eGFR 94 ml/min/1.73m2 02/18/2016 Comp Metabolic Bln219 BUN 17 mg/dL 02/18/2016 Comp Metabolic Yng284 B/C Ratio 24.3 Ratio 02/18/2016 Comp Metabolic Xic495 CALCIUM 9.9 mg/dL 02/18/2016 Comp Metabolic Srx507 ALK PHOS 44 U/L 02/18/2016 Comp Metabolic Tjv580 AST(SGOT) 15 U/L 02/18/2016 Comp Metabolic Ixn521 ALT(SGPT) 15 U/L 02/18/2016 Comp Metabolic Rxo390 BILI T 1.2 mg/dL 02/18/2016 Comp Metabolic Vei598 ALBUMIN 4.1 g/dL 02/18/2016 Comp Metabolic Dzo006 TPRO 6.5 g/dL 02/18/2016 Comp Metabolic Cky822 GLOB 2.4 g/dL 02/18/2016 Comp Metabolic Uqh786 A/G Ratio 1.7 Ratio 02/18/2016 Comp Metabolic Jnh007 Osmo 271 mOsmo 02/18/2016 Lipid Ord30 CHOL 210 mg/dL 02/18/2016 Lipid Ord30 HDL 54.0 mg/dl 02/18/2016 Lipid Ord30 TRIG 106 mg/dL 02/18/2016 Lipid Ord30 LDL 135 mg/dL 02/18/2016 Lipid Ord30 C/HDL 3.9 Ratio 02/18/2016 Tsh Ord6 hTSH II 2.04 uIU/mL 02/18/2016 Cbc With Differential Ord2 WBC 5.38 K/ul 02/18/2016 Cbc With Differential Ord2 RBC 4.52 M/ul 02/18/2016 Cbc With Differential Ord2 HGB 14.1 g/dl 02/18/2016 Cbc With Differential Ord2 Neut% 48.5 % 02/18/2016 Cbc With Differential Ord2 HCT 41.9 % 02/18/2016 Cbc With Differential Ord2 Lymph% 32.9 % 02/18/2016 Cbc With Differential Ord2 MCV 92.7 fl 02/18/2016 Cbc With Differential Ord2 MCH 31.2 pg 02/18/2016 Cbc With Differential Ord2 [place]% 10.8 % 02/18/2016 Cbc With Differential Ord2 Eos% 6.7 % 02/18/2016 Cbc With Differential Ord2 MCHC 33.7 pg 02/18/2016 Cbc With Differential Ord2 PLT 224 K/ul 02/18/2016 Cbc With Differential Ord2 Baso% 1.1 % 02/18/2016 Cbc With Differential Ord2 Neut ABS# 2.61 K/ul 02/18/2016 Cbc With Differential Ord2 RDW 12.7 % 02/18/2016 Cbc With Differential Ord2 Lymph ABS# 1.77 K/ul 02/18/2016 Cbc With Differential Ord2 [place] ABS# 0.6 K/ul 02/18/2016 Cbc With Differential Ord2 Eos ABS# 0.4 K/ul 02/18/2016 Cbc With Differential Ord2 Baso ABS# 0.1 K/ul 02/18/2016 Review of Systems System Result Effective Dates Constitutional No recent illness 2016 Constitutional No [...] Result Effective Dates Notes Full Exam - Genitourinary/Female Constitutional general appearance [...] No Procedures data Vital Signs Date Vital 03/12/2017 BMI: 22.6 Code: 02699-1 Heart Rate 1: 58 bpm Height: 5'8" SpO2: 98% Weight: 148 lbs 8 oz 02/13/2016 Blood Pressure 1: 120/68 Code : 8480-6 BMI: 21.7 Code : 46004-2 Heart Rate 1 : 47 bpm Height: 5'8" SpO2: 98% Weight: 143 lbs 11/29/2013 Blood Pressure 1: 110/60 Code : 8480-6 BMI: 22.5 Code : 89200-7 Heart Rate 1 : 64 bpm Height: 5'8" Weight: 148 lbs 04/14/2012 Blood Pressure 1: 114/70 Code : 8480-6 Heart Rate 1: 72 bpm Weight: 156 lbs Functional Status No Functional Status data History of Present Illness Symptom Name Status Result Effective Date Notes breast complaint Quality mass 03/12/2017 None breast [...] data Encounters Encounter Performer Location Codes Date ([id number]) 09268 EST. PATIENT, LEVEL III Diagnosis: Mastodynia[ICD10: N64.4] Diagnosis: Solitary cyst of left breast[ICD10: N60.02] Diagnosis: Sciatica, right side[ICD10: M54.31] Tiffanie Parra MD, [facility] CPT-4: 60668 03/12/2017 25666 EST. PATIENT, LEVEL III Diagnosis: Cervicalgia[ICD10: M54.2] Diagnosis: Other muscle spasm[ICD10: M62.838] Diagnosis: Other fatigue[ICD10: R53.83] Anni Parra MD, [facility] CPT-4 : 54157 02/13/2016 ([id number]) 33472 EST. PATIENT, LEVEL III Diagnosis: Breast mass, right[ICD9: 611.72] Tiffanie Parra MD, [facility] CPT-4: 57065 11/29/2013 ([id number]) 75358 EST. PATIENT, LEVEL III Diagnosis: Cervicalgia[ICD9: 723.1] Diagnosis: Spasm of muscle[ICD9: 728.85] Tiffanie Parra MD, [facility] CPT-4: 18006 04/14/2012 Plan of Care Planned Activity Notes Codes Status Date Patient Education: Patient Medication Summary Completed 04/30/2018 Care Plan: Bilateral DIAGNOSTICMAMMOGRAPHYDIGITAL LOINC : 91366-0 Pending 04/30/2018 Visit Plan: Left breast cyst/pain-mammogram/ultrasound pending-will start abx as directed-ibuprofen as directed for pain-call if sympotms do not resolve or if any worse Sciatica- exercises discussed with the patient, pt to continue with antiinflammatories. Pt is to call if the symptoms do not improve or if they worsen. 03/12/2017 Appointment: Tiffanie Patel WPtel: [address] [place], [place] [phone] (15 min) [facility] 03/12/2017 Patient Education: Patient Medication Summary Completed 03/12/2017 Care Plan: SCREENINGMAMMOGRAPHYDIGITAL LOINC : 94054-7 Pending 02/15/2016 Visit Plan: Cervicalgia-muscle spasms-discussed natural and expected course of this diagnosis and to alert me if symptoms do not follow expected course, or if any worse. RX sent to patient's pharmacy. Recommend heat to neck as well as massage. Patient to call if pain does not resolve for trigger point injections. fatigue - will check labs, pending labs will potentially order a sleep study. Recommend routine mammogram and well woman visit 02/13/2016 Patient Education: Patient Medication Summary Completed 02/13/2016 Patient Education: .Cervicalgia Neck Pain Completed 02/13/2016 Visit Plan: Right breast pain-scheduled for diagnostic mammogram with ultrasound 11/29/2013 Appointment: Tiffanie Patel WPtel: [facility] [address] Sick 11/29/2013 Patient Education: Patient Medication Summary Completed 11/29/2013 Visit Plan: Cervicalgia-muscle spasms-discussed natural and expected course of this diagnosis and to alert me if symptoms do not follow expected course, or if any worse. RX sent to patient's pharmacy. Samples of anti -inflammatories provided and instructed on use-instructed patient to call Dr. Wyman's office before taking medication longer than 3 days due to upcoming hernia surgery. Recommend heat to neck as well as massage.Patient to call if pain does not resolve for trigger point injections. Recommend routine labs and screening mammogram 04/14/2012 Appointment: Tiffanie Patel WPtel: [phone] Other 04/14/2012 Patient Education: Patient Medication Summary Completed 04/14/2012 Patient Education: .Cervicalgia Neck Pain Completed 04/14/2012 Instructions Comment . Right breast pain-scheduled for diagnostic mammogram with ultrasound . Cervicalgia-muscle spasms-discussed natural and expected course of this diagnosis and to alert me if symptoms do not follow expected course, or if any worse. RX sent to patient's pharmacy. Recommend heat to neck as well as massage. Patient to call if pain does not resolve for trigger point injections. fatigue - will check labs, pending labs will potentially order a sleep study. Recommend routine mammogram and well woman visit ibuprofen 600mg TID with food x 1 week-call if symptoms do not resolve or if any worse continues stretches call if symptoms do not improve or if any worse i sent an antibiotic to [facility] for left breast cyst call if pain does not resolve or if any worse . Left breast cyst/pain-mammogram/ultrasound pending-will start abx as directed -ibuprofen as directed for pain-call if sympotms do not resolve or if any worse Sciatica- exercises discussed with the patient, pt to continue with antiinflammatories. Pt is to call if the symptoms do not improve or if they worsen. . Cervicalgia-muscle spasms-discussed natural and expected course of this diagnosis and to alert me if symptoms do not follow expected course, or if any worse. RX sent to patient's pharmacy. Samples of anti- inflammatories provided and instructed on use-instructed patient to call Dr. Wyman's office before taking medication longer than 3 days due to upcoming hernia surgery. Recommend heat to neck as well as massage.Patient to call if pain does not resolve for trigger point injections. Recommend routine labs and screening mammogram
--- OUTSIDE RECORDS SUMMARY | 2018-05-31 10:42 | XMS REPORT | Continuity of Care Document ---
Author Author [facility] Organization [facility] Address Unknown Phone Unavailable Allergies Active Description Code Type Severity Reaction Onset Reported/Identified Relationship to Patient Clinical Status Yes No Known Drug Allergies [id number] Drug Allergy Unknown N/A 10/11/2010 Medications There is no data. Problems Date Dx Coded Attending Type Code Diagnosis Diagnosed By 04/22/2012 Ot 552.1 UMBILICAL HERNIA W OBSTR 03/11/2017 Ot 553.1 UMBILICAL HERNIA 03/11/2017 Ot V72.63 PRE- PROCEDURAL LABORATORY EXAMINATION 03/11/2017 Ot V74.8 SCREEN- BACTERIAL DIS NEC 03/11/2017 MIGUEL MENENDEZ GOLD WHEEL BLOCKER AND POLISHER Ot 610.0 SOLITARY CYST OF BREAST 03/11/2017 MIGUEL MENENDEZ G[employer] WHE[employer] BLOCKER AND POLISHER Ot 611.72 LUMP OR MASS IN BREAST 03/11/2017 MIGUEL MENENDEZ G[employer] WHEEL BLOCKER AND POLISHER Ot 610.0 SOLITARY CYST OF BREAST 03/11/2017 MIGUEL MENENDEZ G[employer] WHEEL BLOCKER AND POLISHER Ot 611.72 LUMP OR MASS IN BREAST 03/12/2017 MIGUEL MENENDEZ G[employer] WHEEL BLOCKER AND POLISHER Ot 610.0 SOLITARY CYST OF BREAST 03/12/2017 MIGUEL MENENDEZ GOLD WHEEL BLOCKER AND POLISHER Ot 611.72 LUMP OR MASS IN BREAST 03/18/2017 ANGELA MCKINNON BUILDING CARPENTER HELPER Ot N63 UNSPECIFIED LUMP IN BREAST 03/20/2017 ANGELA MCKINNON BUILDING CARPENTER HELPER Ot N63 UNSPECIFIED LUMP IN BREAST 05/07/2017 JACQUELYN ELIZONDO, ENRIKE Horner Ot Z01.818 ENCOUNTER FOR OTHER PREPROCEDURAL EXAMIN 05/07/2017 JACQUELYN ELIZONDO, ENRIKE Horner Ot Z12.11 ENCOUNTER FOR SCREENING FOR MALIGNANT NE 05/11/2017 ENRIKE VALLADARES MD Ot Z12.11 ENCOUNTER FOR SCREENING FOR MALIGNANT NE 05/11/2017 JACQUELYN ELIZONDO, ENRIKE Horner Ot Z80.0 FAMILY HISTORY OF MALIGNANT NEOPLASM OF 05/12/2017 JACQUELYN ELIZONDO, ENRIKE Horner Ot Z12.11 ENCOUNTER FOR SCREENING FOR MALIGNANT NE 05/12/2017 JACQUELYN ELIZONDO, ENRIKE Horner Ot Z80.0 FAMILY HISTORY OF MALIGNANT NEOPLASM OF 05/19/2017 JACQUELYN ELIZONDO, ENRIKE Horner Ot Z12.11 ENCOUNTER FOR SCREENING FOR MALIGNANT NE 05/19/2017 JACQUELYN ELIZONDO, ENRIKE Horner Ot Z80.0 FAMILY HISTORY OF MALIGNANT NEOPLASM OF 05/22/2017 MIGUEL MENENDEZ GOLD WHEEL BLOCKER AND POLISHER Ot 610.0 SOLITARY CYST OF BREAST 05/22/2017 MIGUEL MENENDEZ GOLD WHEEL BLOCKER AND POLISHER Ot 611.72 LUMP OR MASS IN BREAST 05/27/2017 MIGUEL MENENDEZ GOLD WHEEL BLOCKER AND POLISHER Ot 610.0 SOLITARY CYST OF BREAST 05/27/2017 MIGUEL MENENDEZ GOLD WHEEL BLOCKER AND POLISHER Ot 611.72 LUMP OR MASS IN BREAST 09/18/2017 ANGELA MCKINNON BUILDING CARPENTER HELPER Ot N63 UNSPECIFIED LUMP IN BREAST 09/22/2017 MIGUEL MENENDEZ GOLD WHEEL BLOCKER AND POLISHER Ot N60.02 SOLITARY CYST OF LEFT BREAST 10/02/2017 MIGUEL MENENDEZP Ot N60.02 SOLITARY CYST OF LEFT BREAST 04/29/2018 ANGELA MCKINNON BUILDING CARPENTER HELPER Ot N63 UNSPECIFIED LUMP IN BREAST 04/29/2018 MIGUEL MENENDEZ GOLD WHEEL BLOCKER AND POLISHER Ot N60.02 SOLITARY CYST OF LEFT BREAST 05/03/2018 ANGELA MCKINNON BUILDING CARPENTER HELPER Ot N60.02 SOLITARY CYST OF LEFT BREAST 05/05/2018 ANGELA MCKINNON BUILDING CARPENTER HELPER Ot N60.02 SOLITARY CYST OF LEFT BREAST 05/08/2018 ANGELA MCKINNON BUILDING CARPENTER HELPER Ot N60.02 SOLITARY CYST OF LEFT BREAST Procedures There is no data. Results Test Result Range Urine beta human chorionic gonadotropin (hCG) measurement - 05/11/17 07:30 Urine beta human chorionic gonadotropin (hCG) measurement NEGATIVE NEGATIVE Encounters ACCT No. Visit Date/Time Discharge Status Pt. Type Provider Facility Loc./Unit Complaint [id number] 04/29/2018 07:58:00 04/29/2018 23:59:59 CLS Outpatient ANGELA MCKINNON APRN [facility] RAD MASTODYNIA N64.4 [id number] 09/21/2017 08:52:00 09/21/2017 23:59:59 CLS Outpatient MIGUEL MENENDEZ [facility] RAD L BREAST NODULE-6 MO FU [id number] 05/11/2017 06:58:00 05/11/2017 09:40:00 DIS Outpatient ENRIKE VALLADARES MD [facility] ENDO SCREENING [id number] 05/07/2017 05:32:00 05/07/2017 10:17:00 DIS Outpatient ENRIKE VALLADARES MD [facility] PREOP COLONOSCOPY [id number] 03/12/2017 07:13:00 03/12/2017 23:59:59 CLS Outpatient ANGELA MCKINNON APRN [facility] RAD BREAST LUMP,PAIN [id number] 02/26/2017 07:33:00 02/26/2017 23:59:59 CLS Preadmit ANGELA MCKINNON APRN [facility] RAD SCREENING [id number] 12/20/2013 09:42:00 12/20/2013 23:59:59 CLS Outpatient [id number] 12/07/2013 13:36:00 12/07/2013 23:59:59 CLS Outpatient MIGUEL MENENDEZ [facility] RAD RT BREAST MASS [id number] 04/22/2012 05:30:00 Document Registration [id number] 04/19/2012 08:03:00 Document Registration [id number] 04/30/2017 10:37:16 04/30/2017 23:59:59 CLS Outpatient
--- OUTSIDE RECORDS SUMMARY | 2018-05-31 10:42 | XMS REPORT | CCD ---
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 Never smoker 04/14/2012 Alcohol history Unknown occasionally [...] Fill Instructions Keflex 500 mg capsule RxNorm: 721769 1 Capsule(s) PO TID 201603/18/2017 Inactive cyclobenzaprine 5 mg tablet RxNorm: 796701 1 Tablet(s) PO TID 02/13/2016 02/22/2016 Inactive Zyrtec 10 mg capsule RxNorm: 9022280 1 Capsule(s) PO daily No Start Date Active ibuprofen-famotidine 800 mg-26.6 mg tablet RxNorm: 5678803 Tablet(s) PO No Start Date Active Flexeril 10 mg tablet RxNorm: 726923 1/2-1 Tablet(s) PO TID PRN No Start [...] Code Result Date Ehrlichia Chaffeensis Antibody Igg 552449 EHRLICHIA CHAFFEENSIS IGG <1:64 02/22/2016 [place] Spotted Fever Igg/Igm 803511 PRAMOD MT SPOTTED FEVER IGM EIA . 02/22/2016 [place] Spotted Fever Igg/Igm 424545 RMSF, IGM 0.28 index 02/22/2016 [place] Spotted Fever Igg/Igm 080482 PRAMOD MT SPOTTED FEVER IGG EIA FLEX . 02/22/2016 [place] Spotted Fever Igg/Igm 460263 RMSF, IGG SCREEN-FLEX Equivocal 02/22/2016 Ehrlichia Chaffeensis Antibody Igm 135697 EHRLICHIA CHAFFEENSIS IGM < 1:16 02/22/2016 Pram[place] Mtn Spot'D Fev Igg 436028 RMSF, IGG -TITER IFA <1:64 Lymes Disease Total Antibodies With Western Blot Reflex 563368 B. BURGDORFERI, IGG/IGM 0.36 LI 02/20/2016 [place]ym[place] Disease Total Antibodies With Western Blot Reflex 418660 02/20/2016 Comp Metabolic Bsx551 NA 135 mEq/L 02/18/2016 Comp Metabolic Dln875 K 5.1 mEq/L 02/18/2016 Comp Metabolic Nwr793 CL 104 mEq/L 02/18/2016 Comp Metabolic Gzw952 CO2 27.0 mEq/L 02/18/2016 Comp Metabolic Bju234 ANION GAP 9 02/18/2016 Comp Metabolic Owl633 GLUCOSE 84 mg/dL 02/18/2016 Comp Metabolic Imm193 Creat 0.7 mg/dL 02/18/2016 Comp Metabolic Uec160 eGFR 94 ml/min/1.73m2 02/18/2016 Comp Metabolic Bgl562 BUN 17 mg/dL 02/18/2016 Comp Metabolic Lou379 B/C Ratio 24.3 Ratio 02/18/2016 Comp Metabolic Elb937 CALCIUM 9.9 mg/dL 02/18/2016 Comp Metabolic Ckc122 ALK PHOS 44 U/L 02/18/2016 Comp Metabolic Yyi465 AST(SGOT) 15 U/L 02/18/2016 Comp Metabolic Dwg030 ALT(SGPT) 15 U/L 02/18/2016 Comp Metabolic Vhk634 BILI T 1.2 mg/dL 02/18/2016 Comp Metabolic Npz870 ALBUMIN 4.1 g/dL 02/18/2016 Comp Metabolic Yvb464 TPRO 6.5 g/dL 02/18/2016 Comp Metabolic Pye418 GLOB 2.4 g/dL 02/18/2016 Comp Metabolic Zhn504 A/G Ratio 1.7 Ratio 02/18/2016 Comp Metabolic Xcc332 Osmo 271 mOsmo 02/18/2016 Cbc With Differential Ord2 WBC 5.38 K/ul 02/18/2016 Cbc With Differential Ord2 RBC 4.52 M/ul 02/18/2016 Cbc With Differential Ord2 HGB 14.1 g/dl 02/18/2016 Cbc With Differential Ord2 Neut% 48.5 % 02/18/2016 Cbc With Differential Ord2 HCT 41.9 % 02/18/2016 Cbc With Differential Ord2 MCV 92.7 fl 02/18/2016 Cbc With Differential Ord2 Lymph% 32.9 % 02/18/2016 Cbc With Differential Ord2 MCH 31.2 pg 02/18/2016 Cbc With Differential Ord2 [place]% 10.8 % 02/18/2016 Cbc With Differential Ord2 MCHC 33.7 pg 02/18/2016 Cbc With Differential Ord2 Eos% 6.7 % 02/18/2016 Cbc With Differential Ord2 PLT 224 K/ul 02/18/2016 Cbc With Differential Ord2 Baso% 1.1 % 02/18/2016 Cbc With Differential Ord2 RDW 12.7 % 02/18/2016 Cbc With Differential Ord2 Neut ABS# 2.61 K/ul 02/18/2016 Cbc With Differential Ord2 Lymph ABS# 1.77 K/ul 02/18/2016 Cbc With Differential Ord2 [place] ABS# 0.6 K/ul 02/18/2016 Cbc With Differential [...] Code : 8480-6 BMI: 22.5 Code : 76065-3 Heart Rate 1 : 64 bpm Height: 5'8" SpO2: 99% Weight: 148 lbs 03/12/2017 BMI: 22.6 Code: 04315-6 Heart Rate 1: 58 bpm Height: 5'8" SpO2: 98% Weight: 148 lbs 8 oz 02/13/2016 Blood Pressure 1: 120/68 Code : 8480-6 BMI: 21.7 Code : 74720-0 Heart Rate 1 : 47 bpm Height: 5'8" SpO2: 98% Weight: 143 lbs 11/29/2013 Blood Pressure 1: 110/60 Code : 8480-6 BMI: 22.5 Code : 25358-0 Heart Rate 1 : 64 bpm Height: [...] data Encounters Encounter Performer Location Codes Date 35311 EST. PATIENT, LEVEL III Diagnosis: Dysphagia, pharyngoesophageal phase[ICD10: R13.14] Anni Parra MD, [facility] CPT-4: 31640 05/19/2018 ([id number]) 93757 EST. PATIENT, LEVEL III Diagnosis: Mastodynia[ICD10: N64.4] Diagnosis: Solitary cyst of left breast[ICD10: N60.02] Diagnosis: Sciatica, right side[ICD10: M54.31] Tiffanie Parra MD, [facility] CPT-4: 97329 03/12/2017 [id number] EST. PATIENT, LEVEL III Diagnosis: Cervicalgia[ICD10: M54.2] Diagnosis: Other muscle spasm[ICD10: M62.838] Diagnosis: Other fatigue[ICD10: R53.83] [facility] CPT-4 : 80209 02/13/2016 ([id number]) 96555 EST. PATIENT, LEVEL III Diagnosis: Breast mass, right[ICD9: 611.72] Tiffanie Parra MD, [facility] CPT-4: 72531 11/29/2013 ([id number]) 72808 EST. PATIENT, LEVEL III Diagnosis: Cervicalgia[ICD9: 723.1] Diagnosis: Spasm of muscle[ICD9: 728.85] [facility] CPT-4: 54942 04/14/2012 Plan of Care Planned Activity Notes Codes Status Date Visit Plan: Dysphagia - will refer to Dr. Lowery for EGD - pt is to notify clinic with any changes, questions, or concerns. 05/19/2018 Patient Education: Patient Medication Summary Completed 05/19/2018 Care Plan: Referral Order SNOMED-CT : [id number] Pending 05/19/2018 Patient Education: Patient Medication Summary Completed 04/30/2018 Visit Plan: Left breast cyst/pain-mammogram/ultrasound pending-will start abx as directed-ibuprofen as directed for pain-call if sympotms do not resolve or if any worse Sciatica- exercises discussed with the patient, pt to continue with antiinflammatories. Pt is to call if the symptoms do not improve or if they worsen. 03/12/2017 Appointment: Tiffanie Patel WPtel: [address] [place], [place] [phone] (15 min) Moderate 03/12/2017 Patient Education: Patient Medication Summary Completed 03/12/2017 Care Plan: SCREENINGMAMMOGRAPHYDIGITAL LOINC : 91778-1 Pending 02/15/2016 Visit Plan: Cervicalgia-muscle spasms-discussed natural [...] with ultrasound 11/29/2013 Appointment: Tiffanie Patel WPtel: [facility] [phone] Sick 11/29/2013 Patient Education: Patient Medication Summary [...] screening mammogram 04/14/2012 Appointment: [facility]el[facility] [phone] [phone] [facility] 04/14/2012 Patient Education: Patient Medication Summary Completed 04/14/2012 Patient Education: .Cervicalgia Neck Pain Completed 04/14/2012 Referral: Martínez Lowery Referral Initiated Instructions Comment . Right breast pain-scheduled for diagnostic mammogram with ultrasound . Dysphagia - will refer to Dr. Lowery for EGD - pt is to notify clinic with any changes, questions, or concerns. . Cervicalgia-muscle spasms-discussed natural and expected course [...] any worse i sent an antibiotic to [facility] for left breast cyst call if pain [...]
[2018-05-31 10:53] VITALS: BP 121/64
[2018-05-31] MEDS ORDERED: MIDAZOLAM 2 MG/2 ML (VERSED) VIAL ONE ×3 (11:11)
[2018-05-31] MEDS ORDERED: HURRICAINE EXT TUBE (BENZOCAINE) ONE (11:11)
[2018-05-31] MEDS ORDERED: fentaNYL INJECTION 100 MCG/2 ML AMP ONE (11:11)
--- NOTE | 2018-05-31 12:00 | Endo Procedure Record ---
Endo Procedure Report Date of Procedure Last Colonoscopy: Yes (2016) May 31, 2018 Surgeon (s) ENRIKE VALLADARES MD Post Procedure/Op Diagnosis distal esophageal stricture with a hiatal hernia Distal gastritis Procedure Performed EGD with antral biopsy for H. pylori Balloon dilatation of esophageal stricture Description of Procedure Anesthesia Type: Conscious Sedation Specimen(s) collected/removed antral mucosa for H. pylori Description of the Procedure Indication for the procedure: This lady had undergone endoscopic balloon dilatation of a benign esophageal stricture several years ago. Due to recurrent dysphagia, she returned for further endoscopy, with an intent to perform balloon dilatation. Informed consent was obtained after reviewing the procedure in detail. Description of the procedure: She was placed in left lateral decubitus position and her vital signs were monitored. Conscious sedation was achieved using Versed and fentanyl. The flexible gastroscope was then introduced down the esophagus, past the stomach, into the proximal duodenum. Findings: Esophagus: Hiatal hernia extending up to 32 cm with a smooth, concentric stricture at the end. It had the appearance of a peptic stricture and therefore balloon dilatation to 19 mm was performed. Stomach: Distal gastritis of moderate severity. Biopsy for H. pylori was obtained. Duodenum: Normal She tolerated the procedure well and was taken back to the nursing area in a stable condition. Impression: Recurrent esophageal stricture. Balloon dilatation completed. Recommend proton pump anemia therapy, which has just been initiated. Copy Copies To 1: VAMSHI BRANTLEY MD, XAVIER M MD May 31, 2018 12:00
--- NOTE | 2018-05-31 12:01 | Discharge Inst-Simple/Standard ---
Discharge Inst-Standard Discharge Medications New, Converted or Re-Newed RX: Other Patient Instructions/Follow Up Plan of Care/Instructions/FU: please call for Protonix 40 mg daily, 30 day supply with 5 refills to her pharmacy. Follow-up with her primary Activity as Tolerated: Yes Discharge Diet: No Restrictions ENRIKE VALLADARES MD May 31, 2018 12:01
[2018-05-31 12:15] VITALS: BP 116/60
[2018-05-31 12:40] VITALS: BP 99/58
[2018-05-31 12:53] VITALS: BP 99/58
== END 2018-05-31 12:53 | disposition home or self-care (01) ==
LOC: ENDO 09:46
PROVIDERS: ATTEND Surgery
DX: K22.2 Esophageal obstruction (principal); K44.9 Diaphragmatic hernia without obstruction or gangrene; K29.70 Gastritis, unspecified, without bleeding; Z87.891 Personal history of nicotine dependence
CPT/HCPCS: 84703